=== PATIENT | male | born 1985 | race Caucasian/White ===

== ENCOUNTER 2018-12-08 11:26 | Inpatient (IN) | payer OTHER ==
[2018-12-08 11:55] VITALS: BMI 22.4
--- NOTE | 2018-12-08 13:40 | HP ---
COWS - Scale Resting Pulse: 1= [place] 81-100 Sweatin=Flushed/Facial Moisture Restless Observation: 1= Difficult to Sit Still Pupil Size: 1= Pupils >than Normal Bone or Joint Aches: 1= Mild Discomfort Runny Nose/ Eye Tearin= Runny Nose/Eyes GI Upset > 30mins: 1= Stomach Cramp Tremor Observation: 1= Tremor [place], Not Seen Yawning Observation: 1= 1-2x During Session Anxiety or Irritability: 1=Feels Anxious/Irritable Goose Flesh Skin: 0=Smooth Skin COWS Score: 12 CIWA Score - Admission Criteria OASAS Guidelines: Admission for Medically Managed Detox: Requires at least one of the followin. CIWA greater than 12 2. Seizures within the past 24 hours 3. Delirium tremens within the past 24 hours 4. Hallucinations within the past 24 hours 5. Acute intervention needed for co occurring medical disorder 6. Acute intervention needed for co occurring psychiatric disorder 7. Severe withdrawal that cannot be handled at a lower level of care (continued vomiting, continued diarrhea, abnormal vital signs) requiring intravenous medication and/or fluids 8. Admitting History and Physical - Admission Chief Complaint: " I want to stop using heroin." History of Present Illness: 33 year old male with history of opioid dependence with withdrawals. He just started using heavily 3 years ago. He has a history of overdose 5 years ago. He is using 6 bags of heroin intranasally daily, last used yesterday. He occasionally uses marijuana but sporadically. He smokes 10 ciggs per day, daily last smoked today. PMH: None Psurg: None Psych: None - Past Surgical History Past Surgical History: Yes: None - Smoking History Smoking history: Current every day smoker Have you smoked in the past 12 months: Yes Aproximately how many cigarettes per day: 10 - Alcohol/Substance Use Hx Alcohol Use: No History of Substance Use: reports: Heroin Date of Last Use: 12/08/18 - Social History Usual Living Arrangement: Yes: Alone Do you think of yourself as: Straight/Heterosexual ADL: Independent Occupation: unemployed History of Recent Travel: No Admission ROS [facility] - [facility] Chief Complaint: " I want to stop using heroin." Allergies/Adverse Reactions: Allergies Allergy/AdvReac Type Severity Reaction Status Date / Time No Known Allergies Allergy Verified 12/08/18 11:45 History of Present Illness: 33 year old male with history of opioid dependence with withdrawals. He just started using heavily 3 years ago. He has a history of overdose 5 years ago. He is using 6 bags of heroin intranasally daily, last used yesterday. He occasionally uses marijuana but sporadically. He smokes 10 ciggs per day, daily, last smoked today. PMH: None Psurg: None Psych: None - Ebola screening Have you traveled outside of the country in the last 21 days: No Have you had contact with anyone from an Ebola affected area: No Have you been sick,other than usual withdrawal symptoms: No Do you have a fever: No - Review of Systems Constitutional: Chills, Diaphoresis, Loss of Appetite, Unintentional Wgt. Loss EENT: reports: No Symptoms Reported Respiratory: reports: No Symptoms reported Cardiac: reports: No Symptoms Reported GI: reports: Nausea, Abdominal cramping : reports: No Symptoms Reported Integumentary: reports: No Symptoms Reported Neuro: reports: No Symptoms reported Endocrine: reports: No Symptoms Reported Hematology: reports: No Symptoms Reported Psychiatric: reports: Judgement Intact, Mood/Affect Appropiate, Orientated x3 Other Systems: Reviewed and Negative Patient History - Patient Medical History Hx Anemia: No Hx Asthma: No Hx Chronic Obstructive Pulmonary Disease (COPD): No Hx Cancer: No Hx Cardiac Disorders: No Hx Congestive Heart Failure: No Hx Hypertension: No Hx Hypercholesterolemia: No Hx Pacemaker: No HX Cerebrovascular Accident: No Hx Seizures: No Hx Dementia: No Hx Diabetes: No Hx Gastrointestinal Disorders: No Hx Liver Disease: No Hx Genitourinary Disorders: No Hx Sexually Transmitted Disorders: No Hx Renal Disease (ESRD): No Hx Thyroid Disease: No Hx Human Immunodeficiency Virus (HIV): No Hx Hepatitis C: No Hx Depression: No Hx Suicide Attempt: No Hx Bipolar Disorder: No - Patient Surgical History Past Surgical History: No - Smoking Cessation Smoking history: Current every day smoker Have you smoked in the past 12 months: Yes Aproximately how many cigarettes per day: 10 Hx Chewing Tobacco Use: No Initiated information on smoking cessation: Yes 'Breaking Loose' booklet given: 12/08/18 - Substances abused Heroin Substance route: Injection Frequency: 3-6 times per week Amount used: $60 Age of first use: 19 Date of last use: 12/07/18 Benzodiazepine (Klonopin) Substance route: Oral Frequency: Daily Amount used: 1 pill Age of first use: 21 Date of last use: 12/05/18 Marijuana/Hashish Substance route: Smoking Frequency: Daily Amount used: 5 joints Age of first use: 17 Date of last use: 12/07/18 Admission Physical Exam [facility] - Vital Signs Vital Signs: Vital Signs - 24 hr 12/08/18 11:45 Temperature 97.7 F Pulse Rate 59 L Respiratory 18 Rate Blood Pressure 120/75 - Physical General Appearance: Yes: Mild Distress HEENTM: Yes: EOMI, Hearing grossly Normal, Normal ENT Inspection, Normocephalic , Normal Voice, NANO, Pharynx Normal, Tm's normal Respiratory: Yes: Chest Non-Tender, Lungs Clear, Normal Breath Sounds, No Respiratory Distress, No Accessory Muscle Use Neck: Yes: No masses,lesions,Nodules, Supple, Trachea in good position Breast: Yes: Within Normal Limits Cardiology: Yes: Regular Rhythm, Regular Rate, S1, S2 Abdominal: Yes: Non Tender, Increased Bowel Sounds Genitourinary: Yes: Within Normal Limits Back: Yes: Within Normal Limits Musculoskeletal: Yes: full range of Motion, Gait Steady, Pelvis Stable Extremities: Yes: Normal Capillary Refill, Normal Inspection, Normal Range of Motion, Non-Tender Neurological: Yes: gauger chief delivery II-XII NML intact, Fully Oriented, Alert, Motor Strength 5/5, Normal Mood/Affect, Normal Response Integumentary: Yes: Normal Color, Warm Lymphatic: Yes: Within Normal Limits - Diagnostic (1) Cannabis use disorder, mild, abuse Current Visit: Yes Status: Acute Cleared for Admission [facility] - Detox or Rehab [facility] Level of Care: Medically Managed Detox Regimen/Protocol: Methadone Claeared for Rehab Admission: No Screened but not Admitted - Documentation of Visit Screened but not Admitted: No Breathalyzer - Breathalyzer Breathalyzer: 0 Vital Signs - Vital Signs Vital signs refused: No Urine Drug Screen - Test Device Lot number: [id number] Expiration date: 07/16/20 - Control Is test valid?: Yes - Results Drug screen NEGATIVE: No Urine drug screen results: THC-Marijuana, FEN-Fentanyl, MOP-Opiates Inpatient Rehab Admission - Rehab Decision to Admit Inpatient rehab admission?: No
[2018-12-08] MEDS ORDERED: MENTHOL/PHENOL 1 EACH UD MM PRN (13:44)
[2018-12-08] MEDS ORDERED: ACETAMINOPHEN 325 MG TABLET (FP) PO PRN ×2 (13:44)
[2018-12-08] MEDS ORDERED: MAG HYDROX/AL HYDROX/SIMETH 30 ML UNIT-DOSE CUP PO PRN (13:44)
[2018-12-08] MEDS ORDERED: IBUPROFEN 400 MG TABLET (FP) PO PRN (13:44)
[2018-12-08] MEDS ORDERED: cloNIDine HCL 0.1 MG TABLET PO PRN (13:44)
[2018-12-08] MEDS ORDERED: MAGNESIUM CITRATE 300 ML BOTTLE PO PRN (13:44)
[2018-12-08] MEDS ORDERED: MAGNESIUM HYDROX 2400MG/30ML ORAL SUSPENSION 30 ML CUP PO PRN (13:44)
[2018-12-08] MEDS ORDERED: BISMUTH SUBSALICYLATE 524 MG/30 ML UD PO PRN (13:44)
[2018-12-08] MEDS ORDERED: METHADONE HCL 10 MG TABLET (FOR DETOX USE ONLY) PO ONE (15:00)
[2018-12-08] MEDS: METHOCARBAMOL 500 MG TABLET PO PRN (15:29)
[2018-12-08] MEDS: hydrOXYzine PAMOATE 25 MG CAPSULE (FP) PO PRN ×2 (15:29→22:14)
[2018-12-08 17:17] LABS: HEMATOCRIT 46.4 % (35.4-49); HEMOGLOBIN 15.4 GM/dL (11.7-16.9); MCH 29.5 pg (25.7-33.7); MCHC 33.2 g/dl (32.0-35.9); MEAN CELL VOLUME 88.7 fl (80-96); MEAN PLT VOLUME 10.5 fl (7.5-11.1); PLATELET COUNT 184 K/MM3 (134-434); RBC 5.23 M/mm3 (4.00-5.60); RDW 14.4 % (11.9-15.9); WHITE BLOOD COUNT 7.5 K/mm3 (4.0-10.0)
[2018-12-08 17:30] LABS: ALBUMIN 4.6 g/dl (3.4-5.0); BILIRUBIN,TOTAL 0.8 mg/dL (0.2-1); BLOOD UREA NITROGEN 20.2 mg/dL (7-18); CALCIUM 9.5 mg/dL (8.5-10.1); CREATININE 1.2 mg/dL (0.55-1.3); POTASSIUM 3.9 mmol/L (3.5-5.1); TOT PROT 8.1 g/dl (6.4-8.2)
[2018-12-08] MEDS: THIAMINE HCL 100 MG TABLET (FP) PO SCH (22:14)
[2018-12-09] MEDS ORDERED: METHADONE HCL 10 MG TABLET (FOR DETOX USE ONLY) ONE (09:25)
[2018-12-09] MEDS ORDERED: METHADONE HCL 5 MG TABLET (FOR DETOX USE ONLY) ONE (09:25)
[2018-12-09] MEDS ORDERED: METHADONE (DETOX) 20 MG, METHADONE (DETOX) 5 MG PO ONE (10:00)
[2018-12-09] MEDS: PRENATAL VITAMINS W/ FOLIC ACID TABLET (FP) PO SCH (10:42)
[2018-12-09] MEDS: NICOTINE 7 MG/24 HOURS TOPICAL PATCH TD SCH (10:42)
--- NOTE | 2018-12-09 12:26 | PN ---
BHS COWS - Scale Resting Pulse: 0= [place] 80 or Below Sweatin= Chills/Flushing Restless Observation: 0= Sits Still Pupil Size: 0= Normal to Room Light Bone or Joint Aches: 1= Mild Discomfort Runny Nose/ Eye Tearin= Nasal Congestion GI Upset > 30mins: 1= Stomach Cramp Tremor Observation of Outstretched Hands: 2= Slight Tremor Visible Yawning Observation: 0= None Anxiety or Irritability: 2=Irritable/Anxious Goose Flesh Skin: 3=Piloerection COWS Score: 11 S Progress Note (SOAP) Subjective: doing well with methadone detox regimen body aches with anxiety Objective: 12/09/18 12:25 Vital Signs Temperature 96.5 F L 12/09/18 09:21 Pulse Rate 73 12/09/18 09:21 Respiratory Rate 18 12/09/18 09:21 Blood Pressure 130/90 12/09/18 09:21 O2 Sat by Pulse Oximetry (%) Laboratory Last Values WBC 7.5 K/mm3 (4.0-10.0) 12/08/18 14:40 RBC 5.23 M/mm3 (4.00-5.60) 12/08/18 14:40 Hgb 15.4 GM/dL (11.7-16.9) 12/08/18 14:40 Hct 46.4 % (35.4-49) 12/08/18 14:40 MCV 88.7 fl (80-96) 12/08/18 14:40 MCH 29.5 pg (25.7-33.7) 12/08/18 14:40 MCHC 33.2 g/dl (32.0-35.9) 12/08/18 14:40 RDW 14.4 % (11.9-15.9) 12/08/18 14:40 Plt Count 184 K/MM3 (134-434) 12/08/18 14:40 MPV 10.5 fl (7.5-11.1) 12/08/18 14:40 Sodium 137 mmol/L (136-145) 12/08/18 14:40 Potassium 3.9 mmol/L (3.5-5.1) 12/08/18 14:40 Chloride 100 mmol/L (98-107) 12/08/18 14:40 Carbon Dioxide 26 mmol/L (21-32) 12/08/18 14:40 Anion Gap 12 MMOL/L (8-16) 12/08/18 14:40 BUN 20.2 mg/dL (7-18) H 12/08/18 14:40 Creatinine 1.2 mg/dL (0.55-1.3) 12/08/18 14:40 Est GFR (CKD-EPI)AfAm 92.18 12/08/18 14:40 Est GFR (CKD-EPI)NonAf 79.53 12/08/18 14:40 Random Glucose 74 mg/dL (74-106) 12/08/18 14:40 Calcium 9.5 mg/dL (8.5-10.1) 12/08/18 14:40 Total Bilirubin 0.8 mg/dL (0.2-1) 12/08/18 14:40 AST 24 U/L (15-37) 12/08/18 14:40 ALT 26 U/L (13-61) 12/08/18 14:40 Alkaline Phosphatase 91 U/L (45-117) 12/08/18 14:40 Total Protein 8.1 g/dl (6.4-8.2) 12/08/18 14:40 Albumin 4.6 g/dl (3.4-5.0) 12/08/18 14:40 RPR Titer Nonreactive (NONREACTIVE) 12/08/18 14:40 lab noted Assessment: 12/09/18 12:25 opiate withdrawal sx Plan: continue methadone detox regimen
[2018-12-09] MEDS: METHOCARBAMOL 500 MG TABLET PO PRN (17:56)
[2018-12-09] MEDS: hydrOXYzine PAMOATE 25 MG CAPSULE (FP) PO PRN (17:56)
[2018-12-09] MEDS: THIAMINE HCL 100 MG TABLET (FP) PO SCH (22:10)
[2018-12-09] MEDS: MELATONIN 5 MG TABLETS PO PRN (22:13)
[2018-12-10] MEDS ORDERED: METHADONE HCL 10 MG TABLET (FOR DETOX USE ONLY) PO ONE (10:00)
[2018-12-10] MEDS: NICOTINE 7 MG/24 HOURS TOPICAL PATCH TD SCH (10:27)
[2018-12-10] MEDS: PRENATAL VITAMINS W/ FOLIC ACID TABLET (FP) PO SCH (10:28)
--- NOTE | 2018-12-10 17:13 | PN ---
BHS COWS - Scale Resting Pulse: 0= [place] 80 or Below Sweatin= Chills/Flushing Restless Observation: 1= Difficult to Sit Still Pupil Size: 0= Normal to Room Light Bone or Joint Aches: 0= None Runny Nose/ Eye Tearin= Nasal Congestion GI Upset > 30mins: 0= None Tremor Observation of Outstretched Hands: 0= None Yawning Observation: 1= 1-2x During Session Anxiety or Irritability: 2=Irritable/Anxious Goose Flesh Skin: 3=Piloerection COWS Score: 9 BHS Progress Note (SOAP) Subjective: Interrupted Sleep, Anxious, Sweating. Objective: PATIENT A & O X 3, OBSERVED AMBULATING ON DETOX UNIT UNASSISTED. IN NO ACUTE DISTRESS. 12/10/18 17:13 Vital Signs Temperature 96.6 F L 12/10/18 13:45 Pulse Rate 60 12/10/18 13:45 Respiratory Rate 18 12/10/18 13:45 Blood Pressure 128/89 12/10/18 13:45 O2 Sat by Pulse Oximetry (%) Laboratory Tests 12/08/18 12/08/18 12/08/18 14:40 14:40 14:40 WBC 7.5 RBC 5.23 Hgb 15.4 Hct 46.4 MCV 88.7 MCH 29.5 MCHC 33.2 RDW 14.4 Plt Count 184 MPV 10.5 Sodium 137 Potassium 3.9 Chloride 100 Carbon Dioxide 26 Anion Gap 12 BUN 20.2 H Creatinine 1.2 Est GFR (CKD-EPI)AfAm 92.18 Est GFR (CKD-EPI)NonAf 79.53 Random Glucose 74 Calcium 9.5 Total Bilirubin 0.8 AST 24 ALT 26 Alkaline Phosphatase 91 Total Protein 8.1 Albumin 4.6 RPR Titer Nonreactive LABS NOTED. Assessment: 12/10/18 17:14 WITHDRAWAL SYMPTOMS. Plan: CONTINUE DETOX. INCREASE DAILY PO WATER INTAKE.
[2018-12-10] MEDS: THIAMINE HCL 100 MG TABLET (FP) PO SCH (22:12)
[2018-12-10] MEDS: MELATONIN 5 MG TABLETS PO PRN (22:12)
[2018-12-11] MEDS ORDERED: METHADONE HCL 10 MG TABLET (FOR DETOX USE ONLY) ONE (09:58)
[2018-12-11] MEDS ORDERED: METHADONE HCL 5 MG TABLET (FOR DETOX USE ONLY) ONE (09:59)
[2018-12-11] MEDS ORDERED: METHADONE (DETOX) 10 MG, METHADONE (DETOX) 5 MG PO ONE (10:00)
[2018-12-11] MEDS: PRENATAL VITAMINS W/ FOLIC ACID TABLET (FP) PO SCH (10:45)
[2018-12-11] MEDS: NICOTINE 7 MG/24 HOURS TOPICAL PATCH TD SCH (10:45)
--- NOTE | 2018-12-11 17:22 | PN ---
BHS COWS - Scale Resting Pulse: 0= [place] 80 or Below Sweatin= Chills/Flushing Restless Observation: 1= Difficult to Sit Still Pupil Size: 0= Normal to Room Light Bone or Joint Aches: 0= None Runny Nose/ Eye Tearin= None GI Upset > 30mins: 0= None Tremor Observation of Outstretched Hands: 2= Slight Tremor Visible Yawning Observation: 1= 1-2x During Session Anxiety or Irritability: 2=Irritable/Anxious Goose Flesh Skin: 0=Smooth Skin COWS Score: 7 BHS Progress Note (SOAP) Subjective: Interrupted Sleep, Sweating, Anxious. Patient reports That Current withdrawal Detox Symptoms in General Are Subsiding in Severity. Objective: PATIENT A & O X 3, OBSERVED AMBULATING ON DETOX UNIT UNASSISTED. IN NO ACUTE DISTRESS. 12/11/18 17:23 Vital Signs Temperature 97.4 F L 12/11/18 09:56 Pulse Rate 61 12/11/18 09:56 Respiratory Rate 18 12/11/18 09:56 Blood Pressure 123/89 12/11/18 09:56 O2 Sat by Pulse Oximetry (%) Laboratory Tests 12/08/18 12/08/18 12/08/18 14:40 14:40 14:40 WBC 7.5 RBC 5.23 Hgb 15.4 Hct 46.4 MCV 88.7 MCH 29.5 MCHC 33.2 RDW 14.4 Plt Count 184 MPV 10.5 Sodium 137 Potassium 3.9 Chloride 100 Carbon Dioxide 26 Anion Gap 12 BUN 20.2 H Creatinine 1.2 Est GFR (CKD-EPI)AfAm 92.18 Est GFR (CKD-EPI)NonAf 79.53 Random Glucose 74 Calcium 9.5 Total Bilirubin 0.8 AST 24 ALT 26 Alkaline Phosphatase 91 Total Protein 8.1 Albumin 4.6 RPR Titer Nonreactive LABS NOTED. Assessment: 12/11/18 17:24 WITHDRAWAL SYMPTOMS. Plan: CONTINUE DETOX. INCREASE DAILY PO WATER INTAKE.
[2018-12-11] MEDS: THIAMINE HCL 100 MG TABLET (FP) PO SCH (22:16)
[2018-12-11] MEDS: hydrOXYzine PAMOATE 25 MG CAPSULE (FP) PO PRN (22:16)
[2018-12-11] MEDS: METHOCARBAMOL 500 MG TABLET PO PRN (23:15)
[2018-12-12] MEDS ORDERED: METHADONE HCL 10 MG TABLET (FOR DETOX USE ONLY) PO ONE (10:00)
[2018-12-12] MEDS: METHOCARBAMOL 500 MG TABLET PO PRN ×2 (10:45→22:52)
[2018-12-12] MEDS: PRENATAL VITAMINS W/ FOLIC ACID TABLET (FP) PO SCH (10:47)
[2018-12-12] MEDS: NICOTINE 7 MG/24 HOURS TOPICAL PATCH TD SCH (11:11)
--- NOTE | 2018-12-12 13:49 | PN ---
BHS COWS - Scale Resting Pulse: 0= [place] 80 or Below Sweatin= Chills/Flushing Restless Observation: 0= Sits Still Pupil Size: 0= Normal to Room Light Bone or Joint Aches: 1= Mild Discomfort Runny Nose/ Eye Tearin= None GI Upset > 30mins: 0= None Tremor Observation of Outstretched Hands: 1= Tremor [place], Not Seen Yawning Observation: 0= None Anxiety or Irritability: 1=Feels Anxious/Irritable Goose Flesh Skin: 0=Smooth Skin COWS Score: 4 BHS Progress Note (SOAP) Subjective: 33 years old male admitted on 12/08/18 for opiate withdrawal sx management treated with methadone detox regimen patient tolerate well mild body ache less anxious Objective: 12/12/18 13:48 Vital Signs Temperature 98.7 F 12/12/18 13:06 Pulse Rate 77 12/12/18 13:06 Respiratory Rate 16 12/12/18 13:06 Blood Pressure 122/81 12/12/18 13:06 O2 Sat by Pulse Oximetry (%) Laboratory Last Values WBC 7.5 K/mm3 (4.0-10.0) 12/08/18 14:40 RBC 5.23 M/mm3 (4.00-5.60) 12/08/18 14:40 Hgb 15.4 GM/dL (11.7-16.9) 12/08/18 14:40 Hct 46.4 % (35.4-49) 12/08/18 14:40 MCV 88.7 fl (80-96) 12/08/18 14:40 MCH 29.5 pg (25.7-33.7) 12/08/18 14:40 MCHC 33.2 g/dl (32.0-35.9) 12/08/18 14:40 RDW 14.4 % (11.9-15.9) 12/08/18 14:40 Plt Count 184 K/MM3 (134-434) 12/08/18 14:40 MPV 10.5 fl (7.5-11.1) 12/08/18 14:40 Sodium 137 mmol/L (136-145) 12/08/18 14:40 Potassium 3.9 mmol/L (3.5-5.1) 12/08/18 14:40 Chloride 100 mmol/L (98-107) 12/08/18 14:40 Carbon Dioxide 26 mmol/L (21-32) 12/08/18 14:40 Anion Gap 12 MMOL/L (8-16) 12/08/18 14:40 BUN 20.2 mg/dL (7-18) H 12/08/18 14:40 Creatinine 1.2 mg/dL (0.55-1.3) 12/08/18 14:40 Est GFR (CKD-EPI)AfAm 92.18 12/08/18 14:40 Est GFR (CKD-EPI)NonAf 79.53 12/08/18 14:40 Random Glucose 74 mg/dL (74-106) 12/08/18 14:40 Calcium 9.5 mg/dL (8.5-10.1) 12/08/18 14:40 Total Bilirubin 0.8 mg/dL (0.2-1) 12/08/18 14:40 AST 24 U/L (15-37) 12/08/18 14:40 ALT 26 U/L (13-61) 12/08/18 14:40 Alkaline Phosphatase 91 U/L (45-117) 12/08/18 14:40 Total Protein 8.1 g/dl (6.4-8.2) 12/08/18 14:40 Albumin 4.6 g/dl (3.4-5.0) 12/08/18 14:40 RPR Titer Nonreactive (NONREACTIVE) 12/08/18 14:40 lab noted Assessment: 12/12/18 13:48 opiate withdrawal sx 12/12/18 13:49 Plan: continue methadone detox regimen discuss medication assisted treatment program [facility] narcan from pharmacy
[2018-12-12] MEDS: hydrOXYzine PAMOATE 25 MG CAPSULE (FP) PO PRN (22:20)
[2018-12-12] MEDS: THIAMINE HCL 100 MG TABLET (FP) PO SCH (22:21)
[2018-12-12] MEDS: MELATONIN 5 MG TABLETS PO PRN (22:21)
[2018-12-13] MEDS ORDERED: METHADONE HCL 5 MG TABLET (FOR DETOX USE ONLY) PO ONE (06:00)
[2018-12-13 09:20] VITALS: BP 115/80; PULSE 64; TEMP 96.6
[2018-12-13] MEDS: PRENATAL VITAMINS W/ FOLIC ACID TABLET (FP) PO SCH (09:29)
[2018-12-13] MEDS: NICOTINE 7 MG/24 HOURS TOPICAL PATCH TD SCH (09:29)
--- NOTE | 2018-12-13 15:10 | DS ---
[facility] Detox Discharge Summary Admission Date: 12/08/18 Discharge Date: 12/13/18 - History Present History: Opioid Dependence Additional Comments: 33 years old male admitted on 12/08/18 for opiate withdrawal sx management treated with methadone detox regimen patient is alert oriented x 3 respiratory clear lung bilaterally on auscultation abdomen soft no rebound tenderness skin warm dry - Physical Exam Results Vital Signs: Vital Signs Temperature 96.6 F L 12/13/18 09:20 Pulse Rate 64 12/13/18 09:20 Respiratory Rate 18 12/13/18 09:20 Blood Pressure 115/80 12/13/18 09:20 O2 Sat by Pulse Oximetry (%) Pertinent Admission Physical Exam Findings: opiate withdrawal sx Laboratory Last Values WBC 7.5 K/mm3 (4.0-10.0) 12/08/18 14:40 RBC 5.23 M/mm3 (4.00-5.60) 12/08/18 14:40 Hgb 15.4 GM/dL (11.7-16.9) 12/08/18 14:40 Hct 46.4 % (35.4-49) 12/08/18 14:40 MCV 88.7 fl (80-96) 12/08/18 14:40 MCH 29.5 pg (25.7-33.7) 12/08/18 14:40 MCHC 33.2 g/dl (32.0-35.9) 12/08/18 14:40 RDW 14.4 % (11.9-15.9) 12/08/18 14:40 Plt Count 184 K/MM3 (134-434) 12/08/18 14:40 MPV 10.5 fl (7.5-11.1) 12/08/18 14:40 Sodium 137 mmol/L (136-145) 12/08/18 14:40 Potassium 3.9 mmol/L (3.5-5.1) 12/08/18 14:40 Chloride 100 mmol/L (98-107) 12/08/18 14:40 Carbon Dioxide 26 mmol/L (21-32) 12/08/18 14:40 Anion Gap 12 MMOL/L (8-16) 12/08/18 14:40 BUN 20.2 mg/dL (7-18) H 12/08/18 14:40 Creatinine 1.2 mg/dL (0.55-1.3) 12/08/18 14:40 Est GFR (CKD-EPI)AfAm 92.18 12/08/18 14:40 Est GFR (CKD-EPI)NonAf 79.53 12/08/18 14:40 Random Glucose 74 mg/dL (74-106) 12/08/18 14:40 Calcium 9.5 mg/dL (8.5-10.1) 12/08/18 14:40 Total Bilirubin 0.8 mg/dL (0.2-1) 12/08/18 14:40 AST 24 U/L (15-37) 12/08/18 14:40 ALT 26 U/L (13-61) 12/08/18 14:40 Alkaline Phosphatase 91 U/L (45-117) 12/08/18 14:40 Total Protein 8.1 g/dl (6.4-8.2) 12/08/18 14:40 Albumin 4.6 g/dl (3.4-5.0) 12/08/18 14:40 RPR Titer Nonreactive (NONREACTIVE) 12/08/18 14:40 lab noted - Treatment Hospital Course: Detox Protocol Followed, Detoxed Safely, Responded well, Discharged Condition Good, Rehab Referral Accepted Patient has Accepted [facility] - Medication Discharge Medications: Ambulatory Orders Naloxone HCl [Narcan] 4 mg NS ASDIR PRN #1 spray 12/12/18 - Diagnosis (1) Opioid dependence, uncomplicated Status: Acute - AMA Did Patient Leave Against Medical Advice: No COWS (PN) - Opiate Withdrawal Resting Pulse: 0= [place] 80 or Below Sweatin= Chills/Flushing Restless Observation: 0= Sits Still Pupil Size: 0= Normal to Room Light Bone or Joint Aches: 0= None Runny Nose/ Eye Tearin= None GI Upset > 30mins: 0= None Tremor Observation of Outstretched Hands: 0= None Yawning Observation: 0= None Anxiety or Irritability: 1=Feels Anxious/Irritable Goose Flesh Skin: 0=Smooth Skin COWS Score: 2
== END 2018-12-13 09:35 | disposition home or self-care (01) | DRG 773 ==
LOC: YASAS 11:26 → Y3N 14:23
PROVIDERS: ADMIT Allergy & Immunology; ATTEND Allergy & Immunology
PROC: HZ2ZZZZ Detoxification Services for Substance Abuse Treatment (ICD-10-PCS; principal; 2018-12-08)
DX: F11.23 Opioid dependence with withdrawal (principal); F12.10 Cannabis abuse, uncomplicated; F17.210 Nicotine dependence, cigarettes, uncomplicated
CPT/HCPCS: 36415; 80053; 85027; 86593; J0735